=== PATIENT | female | born 1970 | race Caucasian/White ===

== ENCOUNTER 2021-07-24 18:52 | Emergency (ER) | payer OTHER, BC ==
[2021-07-25] MEDS ORDERED: diazePAM 5 MG TAB ONE (00:19)
[2021-07-25] MEDS ORDERED: KETOROLAC 30 MG/ML VIAL ONE (00:19)
[2021-07-25] MEDS ORDERED: NAPR-54 PO (01:22)
== END 2021-07-25 01:35 | disposition home or self-care (01) ==
LOC: MED 18:52
DX: S16.1XXA Strain of muscle, fascia and tendon at neck level, initial encounter (principal); M54.9 Dorsalgia, unspecified; V98.8XXA Other specified transport accidents, initial encounter; Y93.89 Activity, other specified; Y92.9 Unspecified place or not applicable; Y99.8 Other external cause status
CPT/HCPCS: 71045; 72050; 72072; 99284; J1885